=== PATIENT | female | born 1990 | race Caucasian/White ===

== ENCOUNTER 2021-06-24 14:42 | Emergency (ER) | payer BC ==
[~2021-06-24] VITALS: Ht 170.2 cm; Wt 68.0 kg
[~2021-06-24 14:42] MED LIST: CIPR500T94 PO; HYDR-3165 PO; IBUP200T44 PO; ONDA4TAB10 SL
[2021-06-24] MEDS ORDERED: diphenhydrAMINE HCL 25 MG CAPSULE PO ONE (15:15)
[2021-06-24] MEDS ORDERED: FAMOTIDINE 20 MG TABLET PO ONE (15:15)
[2021-06-24] MEDS ORDERED: DEXAMETHASONE SOD PHOS 10 MG/ML VIAL. IM ONE (15:15)
[2021-06-24 15:31] VITALS: BP 126/81
[2021-06-24] MEDS ORDERED: DIPH25CA58 PO (15:32)
[2021-06-24] MEDS ORDERED: PRED50TA PO (15:32)
[2021-06-24] MEDS ORDERED: FAMO20TA5 PO (15:32)
--- NOTE | 2021-06-24 15:33 | PHYS DOC ---
Past History Past Medical History: Asthma, Other Additional Past Medical Histor: basal cell carcinoma (BARBRA MENDOZA JOB BOSS) Past Surgical History: No Surgical History (BARBRA MENDOZA [employer]OSS) Smoking: Non-smoker Alcohol Use: None Drug Use: None (BARBRA MENDOZA [employer]OSS) Adult General Chief Complaint Chief Complaint: ALLERGIC REACTION HPI HPI Patient is a 21-year-old female patient presented to the ED today complaining of a rash that began yesterday. Patient states she is currently on Bactrim for infected right great toe for the last seven days and developed rash yesterday and today it got worse. Denies any fever, denies any difficulty breathing, throat or tongue swelling. (BARBRA MENDOZA J[employer]OSS) Review of Systems Review of Systems Constitutional: Denies fever or chills [] Eyes: Denies change in visual acuity, redness, or eye pain [] HENT: Denies nasal congestion or sore throat [] Respiratory: Denies cough or shortness of breath [] Cardiovascular: No additional information not addressed in HPI [] GI: Denies abdominal pain, nausea, vomiting, bloody stools or diarrhea [] : Denies dysuria or hematuria [] Musculoskeletal: Denies back pain or joint pain [] Integument: Reports rash Neurologic: Denies headache, focal weakness or sensory changes [] All other systems were reviewed and found to be within normal limits, except as documented in this note. (BARBRA MENDOZA [employer]OSS) Current Medications Current Medications Current Medications Medications (Trade) Dose Ordered Sig/Dat Start Time Stop Time Status Last Admin Dose Admin Dexamethasone Sodium Phosphate (Decadron) 10 mg 1X ONCE 06/24/21 15:15 06/24/21 15:16 Diphenhydramine HCl (Benadryl) 25 mg 1X ONCE 06/24/21 15:15 06/24/21 15:16 UNV Famotidine (Pepcid) 20 mg 1X ONCE 06/24/21 15:15 06/24/21 15:16 (BARBRA MENDOZA [employer]) Allergies Allergies Allergies Coded Allergies Type Severity Reaction Last Updated Verified blueberry Allergy Unknown 10/12/14 No (BARBRA MENDOZA [employer]) Physical Exam Physical Exam Constitutional: Well developed, well nourished, no acute distress, non-toxic a ppearance. [] HENT: Normocephalic, atraumatic, bilateral external ears normal, oropharynx moist, no oral exudates, nose normal. [] Eyes: PERRLA, EOMI, conjunctiva normal, no discharge. [] Neck: Normal range of motion, no tenderness, supple, no stridor. [] Cardiovascular:Heart rate regular rhythm, no murmur [] Lungs & Thorax: Bilateral breath sounds clear to auscultation [] Abdomen: Bowel sounds normal, soft, no tenderness, no masses, no pulsatile masses. [] Skin: Mild amount of erythematous rash on patient's face, bilateral upper extremities, chest, lower extremities. Right great toe nailbed with erythema, no drainage. Back: No tenderness, no CVA tenderness. [] Neurologic: Alert and oriented X 3, normal motor function, normal sensory function, no focal deficits noted. [] Psychologic: Affect normal, judgement normal, mood normal. [] (BARBRA MENDOZA APRN) EKG EKG [] (BARBRA MENDOZA APRN) Radiology/Procedures Radiology/Procedures [] (BARBRA MENDOZA APRN) Heart Score C/O Chest Pain: N/A Risk Factors: Risk Factors: DM, Current or recent (<one month) smoker, HTN, HLP, family history of CAD, obesity. Risk Scores: Risk Factors: DM, Current or recent (<one month) smoker, HTN, HLP, family history of CAD, obesity. (BARBRA MENDOZA APRN) Course & Med Decision Making Course & Med Decision Making Pertinent Labs and Imaging studies reviewed. (See chart for details) This is a 31-year-old female patient presenting to the ED today complaining of a rash that began while on Bactrim. Airways open, no throat or lip swelling. Given Benadryl, Decadron, and Pepcid in the ED. Discharged with the same. Follow-up with primary care doctor in 1 week. She states she was already switched from Bactrim to a different antibiotics for the infected great toenail. Tetanus is up-to-date. (BARBRA MENDOZA APRN) Course & Med Decision Making I was the Attending physician on the above date of service of this patient. This patient was evaluated, examined, treated, and dispositioned from the emergency department by the mid-level practitioner. Although I was working at the time , no assistance was requested. Electronically signed, Shereen Godwin DO (SHEREEN GODWIN DO) Ole Disclaimer Ole Disclaimer This electronic medical record was generated, in whole or in part, using a voice recognition dictation system. (REJIBARBRA APRN) Departure Departure: Impression: Primary Impression: Allergic reaction caused by a drug Disposition: HOME / SELF CARE / HOMELESS Condition: STABLE Referrals: DELORES MCCARTHY MD (PCP) follow up in one week Patient Instructions: Drug Allergy, [id number] Additional Instructions: You were evaluated in the emergency room for an allergic reaction to Bactrim. Please take the prescribed medications as ordered. Do not take Bactrim. Follow-up with your doctor in 1 week. Come back to the ED at any point symptoms worsen Scripts Diphenhydramine Hcl (BENADRYL) 25 Mg Capsule 1 CAP PO Q6-8HRS PRN for RASH, #30 CAP 0 Refills Prov: BARBRA MENDOZA APRN 06/24/21 Famotidine (FAMOTIDINE) 20 Mg Tablet 1 TAB PO DAILY, #7 TAB Prov: BARBRA MENDOZA APRN 06/24/21 Prednisone (PREDNISONE) 50 Mg Tablet 1 TAB PO DAILY, #5 TAB Prov: BARBRA MENDOZA APRN 06/24/21 Problem Qualifiers Primary Impression: Allergic reaction caused by a drug Encounter type: initial encounter Qualified Codes: T78.40XA - Allergy, unspecified, initial encounter BARBRA MENDOZA APRN Jun 24, 2021 15:33 SHEREEN GODWIN DO Jun 25, 2021 06:04
== END 2021-06-24 15:44 | disposition home or self-care (01) ==
LOC: ER 14:42
DX: R21 Rash and other nonspecific skin eruption (principal); T36.8X5A Adverse effect of other systemic antibiotics, initial encounter; J45.909 Unspecified asthma, uncomplicated; Z91.018 Allergy to other foods; Y92.89 Other specified places as the place of occurrence of the external cause
CPT/HCPCS: 96372; 99283; J1100; Q0163